=== PATIENT | female | born 1950 | race Caucasian/White ===

== ENCOUNTER → 2018-01-06 | Outpatient (CLI) | payer MEDICAID, MEDICARE ==
[~2018-01-06] MED LIST: ALPH50CA2 PO; ALPR-475 PO; AMIT10TA PO; AMLO10TA2 PO; BUTA1CAP59 PO; DEPRESSION MED; DULO30CA2 PO; DULO60CA7 PO; FENT1PAT77 TD; FENT1PAT9; GABA600T PO; GABA800T PO; GINK120T3 PO; GLYB-135 PO; HYDR-879 PO; INSU100I18 SC; INSU100V8 SQ; LEVO75TA5 PO; LORA1TAB PO; METF10002 PO; MORP-52 PO; MULT-658 PO; OMEP-110 PO; OXYC-307 PO; SUMA50TA3 PO; VITA0.4T6 PO; ZOLP10TA5 PO; [UNRECOGNIZED DRUG - CODE] PO; lisinopril PO
[2018-01-06 14:34] LABS: ALANINE AMINOTRANSFERASE 51 U/L (12-78); ALBUMIN 3.4 g/dL (3.4-5.0); ANION GAP 7 mmol/L (5-15); CALCIUM 8.6 mg/dL (8.5-10.1); CHLORIDE 103 mmol/L (98-107)
[2018-01-06 14:36] LABS: ALKALINE PHOSPHATASE 126 U/L (45-117); BILIRUBIN,TOTAL 0.7 mg/dL (0.2-1.0); CREATININE 0.72 mg/dL (0.55-1.02); TOTAL PROTEIN 7.8 g/dL (6.4-8.2)
== END | disposition home or self-care (01) ==
LOC: STAR 13:04
PROVIDERS: ATTEND Obstetrics & Gynecology Female Pelvic Medicine and Reconstructive Surgery
DX: Z01.818 Encounter for other preprocedural examination (principal); R94.31 Abnormal electrocardiogram [ECG] [EKG]; N39.3 Stress incontinence (female) (male); R10.2 Pelvic and perineal pain; N81.10 Cystocele, unspecified; N81.6 Rectocele
CPT/HCPCS: 36415; 80053; 93005

== ENCOUNTER 2018-01-11 06:28 | Day surgery (SDC) | payer MEDICAID, MEDICARE ==
[~2018-01-11] VITALS: Ht 154.9 cm; Wt 67.4 kg
[~2018-01-11 06:28] MED LIST changes: +BUPIVACAINE/PF-EPI 0.25% 1:200K ONE; +NEOMY/POLYMYXIN B GU IRR. 1 ML IRRIG ONE
[2018-01-11] MEDS ORDERED: LACTATED RINGERS 1,000 ML IV SCH (07:07)
[2018-01-11 07:11] VITALS: BP 148/75
[2018-01-11] MEDS ORDERED: MIDAZOLAM 1 MG/ML, 2ML ONE (08:23)
[2018-01-11] MEDS ORDERED: FENTANYL PF 100 MCG/2ML ONE (08:23)
[2018-01-11] MEDS ORDERED: SUCCINYLCHOLINE 20 MG/ML, 10ML ONE (08:24)
[2018-01-11] MEDS ORDERED: PROPOFOL 10 MG/ML, 20ML ONE (08:24)
[2018-01-11] MEDS ORDERED: LIDOCAINE GEL 2%, 5ML ONE (08:24)
[2018-01-11] MEDS ORDERED: METOCLOPRAMIDE 5 MG/ML, 2ML ONE (08:25)
[2018-01-11] MEDS ORDERED: ONDANSETRON 2MG/ML, 2ML ONE (08:25)
[2018-01-11] MEDS ORDERED: DEXAMETHASONE 4 MG/ML, 1ML ONE (08:25)
[2018-01-11] MEDS ORDERED: KETOROLAC 30 MG/1 ML ONE (09:24)
[2018-01-11] MEDS ORDERED: OXYcodone 5 MG/5 ML ORAL.SOL UDC ONE (09:25)
[2018-01-11] MEDS ORDERED: MORPHINE SULFATE 4 MG/ML, 1ML ONE (09:25)
[2018-01-11] MEDS ORDERED: ONDANSETRON 2MG/ML, 2ML IVPush PRN (09:30)
[2018-01-11] MEDS ORDERED: OXYcodone 5 MG/5 ML ORAL.SOL UDC PO PRN (09:30)
[2018-01-11] MEDS ORDERED: HYDROmorphone 1 MG/ML, 1ML IV PRN (09:30)
[2018-01-11] MEDS ORDERED: MIDAZOLAM 1 MG/ML, 2ML IV PRN (09:30)
[2018-01-11] MEDS ORDERED: KETOROLAC 30 MG/1 ML IV PRN (09:30)
[2018-01-11] MEDS ORDERED: FENTANYL PF 100 MCG/2ML IV PRN (09:30)
[2018-01-11] MEDS ORDERED: MORPHINE SULFATE 4 MG/ML, 1ML IVPush PRN (09:30)
[2018-01-11] MEDS ORDERED: LABETALOL 5MG/ML, 20ML IV PRN (09:30)
[2018-01-11] MEDS ORDERED: MEPERIDINE/PF 25MG/0.5ML IVPush PRN (09:30)
[2018-01-11] MEDS ORDERED: OXYcodone/APAP 5/325MG TABLET PO PRN (13:00)
== END 2018-01-11 14:20 | disposition home or self-care (01) ==
LOC: OUT 06:28
PROVIDERS: ATTEND Obstetrics & Gynecology Female Pelvic Medicine and Reconstructive Surgery
DX: N81.89 Other female genital prolapse (principal); N39.46 Mixed incontinence; E11.9 Type 2 diabetes mellitus without complications; J45.909 Unspecified asthma, uncomplicated; E03.9 Hypothyroidism, unspecified; K21.9 Gastro-esophageal reflux disease without esophagitis; G43.909 Migraine, unspecified, not intractable, without status migrainosus; Z87.39 Personal history of other diseases of the musculoskeletal system and connective tissue; Z90.49 Acquired absence of other specified parts of digestive tract; Z98.890 Other specified postprocedural states; Z90.710 Acquired absence of both cervix and uterus; Z88.0 Allergy status to penicillin; Z79.899 Other long term (current) drug therapy
CPT/HCPCS: 57265; 57282; 57288; 82962; C1771; J0330; J1100; J1885; J2250; J2405; J2704; J2765; J3010; J7120

== ENCOUNTER 2018-07-31 22:01 | Emergency (ER) | payer MEDICARE ==
[~2018-07-31] VITALS: Ht 154.9 cm; Wt 68.6 kg
[~2018-07-31 22:01] MED LIST changes: -AMLO10TA2 PO; +AMLO10TA8 PO; -BUPIVACAINE/PF-EPI 0.25% 1:200K ONE; +HYDR-3622 PO; -HYDR-879 PO; -NEOMY/POLYMYXIN B GU IRR. 1 ML IRRIG ONE
--- NOTE | 2018-07-31 22:48 | NUR ---
Pt ambulated to restroom with for UA with steady gait
[2018-07-31 22:50] LABS: BASOPHILS # (AUTO) 0.03 x10^3/uL (0-0.1); BASOPHILS % (AUTO) 1 % (0-1); EOSINOPHILS # (AUTO) 0.12 x10^3/uL (0-0.4); EOSINOPHILS % (AUTO) 2 % (1-7); LYMPHOCYTES # (AUTO) 1.67 x10^3/uL (1-3.4); LYMPHOCYTES % (AUTO) 29 % (22-44); MD NO; MEAN CORPUSCULAR HGB CONC 33.5 g/dL (32.4-35.8); MEAN CORPUSCULAR VOLUME 89.7 fL (80-100); MONOCYTES # (AUTO) 0.49 x10^3/uL (0.2-0.8); MONOCYTES % (AUTO) 9 % (2-9); NEUTROPHILS # (AUTO) 3.45 x10^3/uL (1.8-6.8); NEUTROPHILS % (AUTO) 60 % (42-75); PLATELET COUNT 180 x10^3/uL (130-400); RED BLOOD COUNT 4.15 x10^6/uL (3.82-5.3); RED CELL DISTRIBUTION WIDTH 13.9 % (9.6-15.2)
--- NOTE | 2018-07-31 22:59 | NUR ---
urine collected and sent to lab.
[2018-07-31] MEDS ORDERED: ONDANSETRON 2MG/ML, 2ML IVPush ONE (23:00)
[2018-07-31] MEDS ORDERED: ONDANSETRON 2MG/ML, 2ML ONE (23:00)
[2018-07-31] MEDS ORDERED: MORPHINE SULFATE 4 MG/ML, 1ML ONE (23:00)
[2018-07-31] MEDS ORDERED: MORPHINE SULFATE 4 MG/ML, 1ML IVPush PRN (23:00)
[2018-07-31 23:02] LABS: ALANINE AMINOTRANSFERASE 40 U/L (12-78); ALBUMIN 3.2 g/dL (3.4-5.0); ANION GAP 8 mmol/L (5-15); CALCIUM 8.5 mg/dL (8.5-10.1); CHLORIDE 109 mmol/L (98-107); CREATININE 0.59 mg/dL (0.55-1.02)
--- NOTE | 2018-07-31 23:05 | NUR ---
PT PRESENTS TO ED WITH C/O PERIUMBILICAL PAIN WITH N/V X 1 WEEK. PT A&O, RESPS EVEN AND UNLABORED. AT BEDSIDE. BP AND SPO2 MONITORS IN PLACE. CALL LIGHT IN REACH. PT MEDICATED PER EMAR, TOLERATED WELL. AWAITING UA, LAB AND CT .
[2018-07-31 23:07] LABS: ALKALINE PHOSPHATASE 124 U/L (45-117); BILIRUBIN,TOTAL 0.7 mg/dL (0.2-1.0); TOTAL PROTEIN 7.2 g/dL (6.4-8.2); TROPONIN I < 0.015 ng/mL (0.000-0.045)
[2018-07-31 23:09] LABS: MICROSCOPIC NOT IND
[2018-07-31 23:14] LABS: CULTURE INDICATED? NO
--- NOTE | 2018-07-31 23:23 | NUR ---
pt to CT
--- NOTE | 2018-07-31 23:33 | NUR ---
pt back from CT
--- NOTE | 2018-07-31 23:44 | NUR ---
per failure analysis technician, pt c/o of pain at PIV site with flush prior to contrast admin. Pt brought back to room 14. PIV site is reddened with localized swelling, this was not noted with morphine admin. PIV was dc'd with tip intact. New PIV placed to left forarm, flushes with blood return. CT called to notify that pt is ready for scan. Addendum: 08/01/18 at 0005 by JIM per failure analysis technician, pt c/o of pain at PIV site with flush prior to contrast admin. Pt brought back to room 14. PIV site is reddened with localized swelling, this was not noted with morphine admin. PIV was dc'd with tip intact. Pt denies any sob, denies any itchiness, denies any other symptoms. pt states she has never had any adverse rxn to morphine/zofran in past. New PIV placed to left forarm, flushes with blood return. CT called to notify that pt is ready for scan.
--- NOTE | 2018-08-01 00:05 | NUR ---
REPORT TO JADE GRIFFITH, PT TO CT AT THIS TIME.
[2018-08-01] MEDS ORDERED: OMNIPAQUE 350 MG/ML, 100ML BOTTLE ONE (00:18)
[2018-08-01 01:23] VITALS: BP 162/67
--- NOTE | 2018-08-01 01:49 | NUR ---
BREAK RN: DR. DAVIDSON AT BEDSIDE UPDATING PT ON POC
== END 2018-08-01 02:20 | disposition home or self-care (01) ==
LOC: ED 23:00
DX: R10.84 Generalized abdominal pain (principal); I10 Essential (primary) hypertension; E11.9 Type 2 diabetes mellitus without complications; J44.9 Chronic obstructive pulmonary disease, unspecified; G43.909 Migraine, unspecified, not intractable, without status migrainosus; F32.9 Major depressive disorder, single episode, unspecified; Z90.49 Acquired absence of other specified parts of digestive tract; Z88.5 Allergy status to narcotic agent; Z88.0 Allergy status to penicillin; Z88.8 Allergy status to other drugs, medicaments and biological substances
CPT/HCPCS: 36415; 74177; 80053; 81003; 83690; 84484; 85025; 96374; 96375; 99284; J2405; Q9967

== ENCOUNTER 2018-08-03 00:39 | Emergency (ER) | payer MEDICARE ==
[~2018-08-03] VITALS: Ht 160 cm; Wt 68.3 kg
--- NOTE | 2018-08-03 01:05 | NUR ---
FIRST CONTACT WITH PT. PT C/O ALL QUADRANTS ABD PAIN/N/V FOR A WEEK. PT STATES HERE 2 DAYS AGO FOR THE SAME REASONS, BUT IT'S GETTING WORSE. PT DENIES SOB/D/CP AT THIS TIME. BP/SPO2 MONITORS IN PLACE. CALL LIGHT WITHIN REACH. EDMD AT BEDSIDE TO ASSESS.
[2018-08-03 01:20] LABS: MEAN CORPUSCULAR HEMOGLOBIN 29.9 pg (27.0-34.8); MEAN CORPUSCULAR HGB CONC 32.9 g/dL (32.4-35.8); MEAN CORPUSCULAR VOLUME 90.8 fL (80-100); MEAN PLATELET VOLUME 9.1 fL (7.4-10.4); PLATELET COUNT 220 x10^3/uL (130-400); RED BLOOD COUNT 4.66 x10^6/uL (3.82-5.3)
[2018-08-03] MEDS ORDERED: ONDANSETRON 2MG/ML, 2ML ONE ×2 (01:20→02:53)
[2018-08-03] MEDS ORDERED: MORPHINE SULFATE 4 MG/ML, 1ML ONE (01:21)
[2018-08-03] MEDS ORDERED: MAALOX/HYOSCYAMINE/LIDOCAINE 45 ML BTL ONE (01:21)
[2018-08-03] MEDS ORDERED: ONDANSETRON 2MG/ML, 2ML IVPush ONE ×2 (01:30→03:00)
[2018-08-03] MEDS ORDERED: MORPHINE SULFATE 4 MG/ML, 1ML IVPush PRN (01:30)
[2018-08-03] MEDS ORDERED: MAALOX/HYOSCYAMINE/LIDOCAINE 45 ML BTL PO ONE (01:30)
[2018-08-03] MEDS ORDERED: SODIUM CHLORIDE FLUSH 10ML SYR IVF ONE (01:30)
[2018-08-03 01:31] LABS: BASOPHILS # (AUTO) 0.03 x10^3/uL (0-0.1); BASOPHILS % (AUTO) 0 % (0-1); EOSINOPHILS # (AUTO) 0.21 x10^3/uL (0-0.4); EOSINOPHILS % (AUTO) 1 % (1-7); LYMPHOCYTES # (AUTO) 1.18 x10^3/uL (1-3.4); LYMPHOCYTES % (AUTO) 8 % (22-44); MD SCAN; MONOCYTES % (AUTO) 5 % (2-9); NEUTROPHILS % (AUTO) 86 % (42-75)
[2018-08-03 01:32] LABS: ALANINE AMINOTRANSFERASE 44 U/L (12-78); ALBUMIN 3.6 g/dL (3.4-5.0); ANION GAP 7 mmol/L (5-15); CALCIUM 8.9 mg/dL (8.5-10.1); CHLORIDE 106 mmol/L (98-107); CREATININE 0.71 mg/dL (0.55-1.02)
[2018-08-03 01:34] LABS: ALKALINE PHOSPHATASE 116 U/L (45-117); BILIRUBIN,TOTAL 0.8 mg/dL (0.2-1.0); TOTAL PROTEIN 7.6 g/dL (6.4-8.2)
--- NOTE | 2018-08-03 01:34 | NUR ---
PT MEDICATED PER EMAR. PT TOLERATED WELL.
--- NOTE | 2018-08-03 01:50 | NUR ---
PT AMB TO BR AND BACK TO ROOM WITH STEADY GAIT.
[2018-08-03 02:02] LABS: MICROSCOPIC AUTO
[2018-08-03] MEDS ORDERED: CEFDINIR 300 MG CAPSULE ONE (02:53)
[2018-08-03] MEDS ORDERED: OXYcodone/APAP 10/325MG TABLET ONE (02:53)
[2018-08-03] MEDS ORDERED: OXYcodone/APAP 10/325MG TABLET PO ONE (03:00)
[2018-08-03] MEDS ORDERED: CEFDINIR 300 MG CAPSULE PO ONE (03:00)
--- NOTE | 2018-08-03 03:01 | NUR ---
pt medicated per emar. pt tolerated well. pt's aox4. resps even and unlabored.
[2018-08-03 03:09] VITALS: BP 146/57
--- NOTE | 2018-08-03 03:39 | NUR ---
PT GIVEN DC INSTRUCTIONS AND SCRIPTS. PT EDUCATED REGARDING DC MEDICATIONS. PT AMB TO DC WITH STEADY GAIT. PT'S AOX4. RESPS EVEN AND UNLABORED. NO ACUTE DISTRESS AT DC.
== END 2018-08-03 03:11 | disposition home or self-care (01) ==
LOC: ED 01:06
DX: R10.13 Epigastric pain (principal); R11.2 Nausea with vomiting, unspecified; I10 Essential (primary) hypertension; E11.9 Type 2 diabetes mellitus without complications; J44.9 Chronic obstructive pulmonary disease, unspecified; F41.1 Generalized anxiety disorder; Z90.89 Acquired absence of other organs; Z90.49 Acquired absence of other specified parts of digestive tract; Z90.710 Acquired absence of both cervix and uterus
CPT/HCPCS: 36415; 74022; 80053; 81001; 83690; 85025; 96374; 96375; 96376; 99284; J2405

== ENCOUNTER 2018-12-08 08:02 | Outpatient (CLI) | payer MEDICARE ==
[~2018-12-08 08:02] MED LIST changes: -ALPR-475 PO; +ALPR0.5T7 PO
== END 2018-12-08 23:59 | disposition home or self-care (01) ==
LOC: PETCFH 08:02
PROVIDERS: ATTEND Internal Medicine Gastroenterology
DX: Z02.9 Encounter for administrative examinations, unspecified (principal)

== ENCOUNTER 2019-10-16 20:43 | Emergency (ER) | payer MEDICARE ==
[~2019-10-16] VITALS: Ht 154.9 cm; Wt 63.5 kg
[~2019-10-16 20:43] MED LIST changes: -GLYB-135 PO; +GLYB1TAB16 PO
--- NOTE | 2019-10-16 21:09 | NUR ---
Task RN: Patient presents to ER c/o anxiety since last night. Patient states she went to [facility] yesterday due to left leg pain and right arm pain. Patient states she has a hx of neuropathy and does not take pain meds. She received Toradol yesterday for her pain at [facility] and has been axious since then. Patient has a hx of anxiety but does not take meds. Patient c/o bilat leg pain today. Patient is anxious. Respirations even, unlabored, and controlled.
[2019-10-16] MEDS ORDERED: LORazepam 1MG TABLET ONE (21:47)
--- NOTE | 2019-10-16 21:53 | NUR ---
PT MEDICATED PER MAR
[2019-10-16] MEDS ORDERED: LORazepam 1MG TABLET PO ONE (22:00)
--- NOTE | 2019-10-16 22:55 | NUR ---
PT RESTING ON GURNEY WITH EYES CLOSED, SPOUSE AT BEDSIDE, CALL LIGHT WITHIN REACH. CHART UP FOR RECHECK
[2019-10-16 22:57] VITALS: BP 124/80
== END 2019-10-16 23:14 | disposition home or self-care (01) ==
LOC: ED 23:12
DX: F41.1 Generalized anxiety disorder (principal); E11.40 Type 2 diabetes mellitus with diabetic neuropathy, unspecified; M79.661 Pain in right lower leg; J44.9 Chronic obstructive pulmonary disease, unspecified; E11.9 Type 2 diabetes mellitus without complications; G89.29 Other chronic pain; I10 Essential (primary) hypertension; G43.909 Migraine, unspecified, not intractable, without status migrainosus; Z90.89 Acquired absence of other organs; Z90.49 Acquired absence of other specified parts of digestive tract; Z90.710 Acquired absence of both cervix and uterus
CPT/HCPCS: 99283

== ENCOUNTER 2020-01-18 06:21 | Emergency (ER) | payer MEDICARE ==
[~2020-01-18] VITALS: Ht 154.9 cm; Wt 64.0 kg
--- NOTE | 2020-01-18 06:44 | NUR ---
PT TO ROOM BY WHEELCHAIR, ASSUME CARE AT THIS TIME
--- NOTE | 2020-01-18 07:04 | NUR ---
ABD PAIN X 1 WEEK DENIES VOMITING DIARRHEA. PT IN BED IN GOWN WITH CONT SPO2, BP Q 30 MIN, SIDE RIALS UP X2, CALL LIGHT IN REACH. 20G IV STARTED IN RIGHT ARM. WARM BLANKET GIVEN.
[2020-01-18] MEDS ORDERED: ONDANSETRON 2MG/ML, 2ML ONE (07:13)
[2020-01-18] MEDS ORDERED: MORPHINE SULFATE 4 MG/ML, 1ML ONE ×2 (07:13→08:47)
[2020-01-18] MEDS: MORPHINE SULFATE 4 MG/ML, 1ML IVPush PRN ×2 (07:19→08:50)
--- NOTE | 2020-01-18 07:19 | NUR ---
WENT OVER PLAN OF CARE FROM ORDER LIST, AGREES TO PLAN OF CARE. URINE CUP GIVEN.
[2020-01-18 07:29] LABS: BASOPHILS # (AUTO) 0.04 x10^3/uL (0-0.1); BASOPHILS % (AUTO) 1 % (0-1); EOSINOPHILS # (AUTO) 0.13 x10^3/uL (0-0.4); EOSINOPHILS % (AUTO) 2 % (1-7); LYMPHOCYTES # (AUTO) 1.18 x10^3/uL (1-3.4); LYMPHOCYTES % (AUTO) 17 % (22-44); MD NO; MEAN CORPUSCULAR HEMOGLOBIN 29.2 pg (27.0-34.8); MEAN CORPUSCULAR HGB CONC 32.2 g/dL (32.4-35.8); MEAN CORPUSCULAR VOLUME 90.7 fL (80-100); MEAN PLATELET VOLUME 8.5 fL (7.4-10.4); MONOCYTES # (AUTO) 0.46 x10^3/uL (0.2-0.8); MONOCYTES % (AUTO) 7 % (2-9); NEUTROPHILS # (AUTO) 4.99 x10^3/uL (1.8-6.8); NEUTROPHILS % (AUTO) 73 % (42-75); PLATELET COUNT 183 x10^3/uL (130-400); RED BLOOD COUNT 3.97 x10^6/uL (3.82-5.3); RED CELL DISTRIBUTION WIDTH 14.6 % (9.6-15.2)
[2020-01-18] MEDS ORDERED: ONDANSETRON 2MG/ML, 2ML IVPush ONE (07:30)
[2020-01-18 07:38] LABS: ALANINE AMINOTRANSFERASE 44 U/L (12-78); ALBUMIN 3.1 g/dL (3.4-5.0); ANION GAP 5 mmol/L (5-15); CHLORIDE 96 mmol/L (98-107); CREATININE 0.58 mg/dL (0.55-1.02)
[2020-01-18 07:40] LABS: ALKALINE PHOSPHATASE 150 U/L (45-117); BILIRUBIN,TOTAL 0.9 mg/dL (0.2-1.0); TOTAL PROTEIN 7.1 g/dL (6.4-8.2)
--- NOTE | 2020-01-18 07:42 | NUR ---
URINE SENT TO LAB
[2020-01-18] MEDS ORDERED: OMNIPAQUE 350 MG/ML, 100ML BOTTLE ONE (08:10)
--- NOTE | 2020-01-18 08:17 | NUR ---
PT PAIN 3/10, RESTING RR 16MIN, EVEN AND UNLABORED
--- NOTE | 2020-01-18 08:22 | NUR ---
PT AMBULATED TO THE REST ROOM WITH A STEADY GAIT
[2020-01-18 08:23] LABS: MICROSCOPIC AUTO
[2020-01-18] MEDS ORDERED: KETOROLAC 30 MG/1 ML ONE (09:59)
[2020-01-18] MEDS ORDERED: LORazepam 2 MG/ML, 1ML IVPush ONE (10:00)
[2020-01-18] MEDS ORDERED: LORazepam 2 MG/ML, 1ML ONE (10:00)
[2020-01-18] MEDS ORDERED: KETOROLAC 30 MG/1 ML IVPush ONE (10:00)
[2020-01-18 10:28] VITALS: BP 132/74
== END 2020-01-18 10:29 | disposition home or self-care (01) ==
LOC: ED 07:08
DX: R10.32 Left lower quadrant pain (principal); F41.1 Generalized anxiety disorder; R10.31 Right lower quadrant pain; E11.9 Type 2 diabetes mellitus without complications; Z90.49 Acquired absence of other specified parts of digestive tract; Z90.710 Acquired absence of both cervix and uterus
CPT/HCPCS: 36415; 74177; 80053; 81001; 85025; 96374; 96375; 96376; 99285; J2060; J2270; J2405; Q9967

== ENCOUNTER 2020-01-26 22:22 | Emergency (ER) | payer MEDICARE ==
[~2020-01-26] VITALS: Ht 147.3 cm; Wt 65.5 kg
--- NOTE | 2020-01-27 00:09 | NUR ---
LAB CALLS AND NOTES THAT THEY NEED TO REDRAW.
[2020-01-27 00:17] LABS: ALANINE AMINOTRANSFERASE 44 U/L (12-78); ANION GAP 5 mmol/L (5-15); CALCIUM 9.1 mg/dL (8.5-10.1); CHLORIDE 108 mmol/L (98-107); CREATININE 0.62 mg/dL (0.55-1.02)
[2020-01-27 00:20] LABS: ALKALINE PHOSPHATASE 143 U/L (45-117); BILIRUBIN,TOTAL 0.4 mg/dL (0.2-1.0); TOTAL PROTEIN 7.3 g/dL (6.4-8.2)
[2020-01-27 01:02] LABS: BASOPHILS # (AUTO) 0.04 x10^3/uL (0-0.1); BASOPHILS % (AUTO) 1 % (0-1); EOSINOPHILS # (AUTO) 0.21 x10^3/uL (0-0.4); EOSINOPHILS % (AUTO) 3 % (1-7); LYMPHOCYTES # (AUTO) 2.64 x10^3/uL (1-3.4); LYMPHOCYTES % (AUTO) 36 % (22-44); MD NO; MEAN CORPUSCULAR HEMOGLOBIN 29.1 pg (27.0-34.8); MEAN CORPUSCULAR HGB CONC 31.8 g/dL (32.4-35.8); MEAN CORPUSCULAR VOLUME 91.7 fL (80-100); MEAN PLATELET VOLUME 8.2 fL (7.4-10.4); MONOCYTES # (AUTO) 0.89 x10^3/uL (0.2-0.8); MONOCYTES % (AUTO) 12 % (2-9); NEUTROPHILS # (AUTO) 3.53 x10^3/uL (1.8-6.8); NEUTROPHILS % (AUTO) 48 % (42-75); PLATELET COUNT 238 x10^3/uL (130-400); RED CELL DISTRIBUTION WIDTH 14.5 % (9.6-15.2)
--- NOTE | 2020-01-27 01:16 | NUR ---
BREAK RN: PT C/O RLQ ABD PAIN. PT REPORTS SHE HAS NOT HAD A BOWEL MOVEMENT IN ONE WEEK. VS STABLE. NO ACUTE DISTRESS NOTED. WILL CONTINUE TO MONITOR WHILE PRIMARY RN IS ON BREAK.
[2020-01-27 02:00] VITALS: BP 148/68
[2020-01-27] MEDS ORDERED: METHYLNALTREXONE 12 MG/0.6 ML SYR SQ ONE ×2 (02:00→02:05)
[2020-01-27] MEDS ORDERED: MAGNESIUM CITRATE 300ML ORAL SOL PO ONE (02:00)
[2020-01-27] MEDS ORDERED: MAGNESIUM CITRATE 300ML ORAL SOL ONE (02:04)
--- NOTE | 2020-01-27 02:26 | NUR ---
Pt ambulated out of restroom stating "something came out, i'd like to go home now." Pt informed just pending DC paperwork and she'd be able to leave momentarilly. Upon getting paperwork and bringing it to her room, pt is no longer in room. Pt left without DC paperwork
== END 2020-01-27 02:31 | disposition home or self-care (01) ==
LOC: ED 01-27
DX: K59.00 Constipation, unspecified (principal); R10.84 Generalized abdominal pain; R11.0 Nausea; I10 Essential (primary) hypertension; E11.9 Type 2 diabetes mellitus without complications; G43.909 Migraine, unspecified, not intractable, without status migrainosus; J44.9 Chronic obstructive pulmonary disease, unspecified; Z90.89 Acquired absence of other organs; Z90.49 Acquired absence of other specified parts of digestive tract; Z90.710 Acquired absence of both cervix and uterus
CPT/HCPCS: 36415; 74021; 80053; 83690; 85025; 96372; 99284

== ENCOUNTER 2020-02-23 04:36 | Emergency (ER) | payer MEDICARE ==
[~2020-02-23] VITALS: Ht 154.9 cm; Wt 65.0 kg
[2020-02-23 04:42] VITALS: BP 162/77
[2020-02-23] MEDS ORDERED: GABAPENTIN 300 MG CAPSULE ONE (05:26)
[2020-02-23] MEDS ORDERED: OXYcodone/APAP 10/325MG TABLET ONE (05:26)
[2020-02-23] MEDS ORDERED: OXYcodone/APAP 10/325MG TABLET PO ONE (05:30)
[2020-02-23] MEDS ORDERED: GABAPENTIN 300 MG CAPSULE PO ONE (05:30)
== END 2020-02-23 06:46 | disposition home or self-care (01) ==
LOC: ED 05:48
DX: E11.40 Type 2 diabetes mellitus with diabetic neuropathy, unspecified (principal); M79.604 Pain in right leg; M79.605 Pain in left leg; Z90.89 Acquired absence of other organs; Z90.49 Acquired absence of other specified parts of digestive tract; Z90.710 Acquired absence of both cervix and uterus
CPT/HCPCS: 99283

== ENCOUNTER 2020-07-29 06:34 | Inpatient (IN) | payer MEDICARE ==
[2020-07-29] VITALS (8 sets, daily range): BP systolic 151–208; BP diastolic 74–84
[~2020-07-29] VITALS: Ht 154.9 cm; Wt 67.2 kg
[~2020-07-29 06:34] MED LIST changes: +AMLO-211 PO; -AMLO10TA8 PO; -OXYC-307 PO; +OXYC-380 PO
[2020-07-29 07:37] LABS: BASOPHILS % (AUTO) 0 % (0-1); EOSINOPHILS % (AUTO) 1 % (1-7); LYMPHOCYTES % (AUTO) 5 % (22-44); MEAN CORPUSCULAR HEMOGLOBIN 27.9 pg (27.0-34.8); MEAN CORPUSCULAR HGB CONC 33.1 g/dL (32.4-35.8); MEAN PLATELET VOLUME 7.4 fL (7.4-10.4); MONOCYTES % (AUTO) 7 % (2-9); NEUTROPHILS % (AUTO) 87 % (42-75); PLATELET COUNT 327 x10^3/uL (130-400); RED BLOOD COUNT 3.59 x10^6/uL (3.82-5.3); RED CELL DISTRIBUTION WIDTH 14.2 % (9.6-15.2)
[2020-07-29 07:46] LABS: ALANINE AMINOTRANSFERASE 24 U/L (12-78); ALBUMIN 2.5 g/dL (3.4-5.0); ANION GAP 10 mmol/L (5-15); CALCIUM 8.4 mg/dL (8.5-10.1); CHLORIDE 95 mmol/L (98-107); CREATININE 0.73 mg/dL (0.55-1.02)
[2020-07-29] MEDS ORDERED: DEXAMETHASONE 4 MG/ML, 1ML ONE ×2 (07:49→07:51)
[2020-07-29 07:50] LABS: ALKALINE PHOSPHATASE 123 U/L (45-117); BILIRUBIN,TOTAL 0.9 mg/dL (0.2-1.0); TOTAL PROTEIN 6.6 g/dL (6.4-8.2); TROPONIN I < 0.015 ng/mL (0.000-0.045)
[2020-07-29] MEDS ORDERED: CEFTRIAXONE PMX 2GM/50ML 50 ML ONE (07:50)
[2020-07-29] MEDS ORDERED: DOXYCYCLINE 100MG TABLET ONE (07:50)
[2020-07-29] MEDS ORDERED: CEFTRIAXONE PMX 1GM/50ML 50 ML ONE (07:50)
[2020-07-29 07:51] LABS: MD SCAN
[2020-07-29] MEDS ORDERED: DOXYCYCLINE 100MG TABLET PO ONE (08:00)
[2020-07-29] MEDS ORDERED: DEXAMETHASONE 4 MG/ML, 1ML IV ONE (08:00)
[2020-07-29] MEDS ORDERED: CEFTRIAXONE PMX 1GM/50ML 50 ML IVPB ONE (08:00)
[2020-07-29] MEDS ORDERED: ENOXAPARIN 40 MG/0.4 ML SQ SCH (09:00)
[2020-07-29] MEDS ORDERED: FAMOTIDINE 20 MG TABLET PO SCH (09:00)
[2020-07-29] MEDS: DULOXETINE 30 MG CAPSULE.DR PO SCH (09:00)
[2020-07-29] MEDS: CEFTRIAXONE PMX 1GM/50ML 50 ML IV SCH (09:00)
[2020-07-29] MEDS ORDERED: THIAMINE 100MG TABLET PO ONE (09:00)
[2020-07-29] MEDS ORDERED: DEXAMETHASONE 4 MG/ML, 1ML IVPush SCH (09:00)
[2020-07-29] MEDS ORDERED: ENALAPRILAT 1.25 MG/ML, 2ML IVPush PRN (09:00)
[2020-07-29] MEDS ORDERED: GUAIFENESIN/DM 200-20MG, 10ML UDC PO PRN (09:00)
[2020-07-29] MEDS: ENOXAPARIN 60 MG/0.6 ML SQ SCH ×2 (09:30→21:11)
[2020-07-29] MEDS ORDERED: SODIUM CHLORIDE 0.9% 1,000ML IVBOLUS ONE (09:30)
[2020-07-29] MEDS: CHOLECALCIFEROL 1,000 UNIT TABLET PO SCH (09:50)
[2020-07-29] MEDS: ZINC SULFATE 220 MG CAPSULE PO SCH (09:50)
[2020-07-29] MEDS: MULTIVITAMIN 1 TABLET PO SCH (09:51)
[2020-07-29] MEDS: LEVOTHYROXINE 75 MCG TABLET PO SCH (10:09)
[2020-07-29] MEDS: ONDANSETRON ODT 4 MG PO PRN ×2 (10:09→18:30)
[2020-07-29] MEDS ORDERED: ALBUTEROL HFA 90 MCG/SPRAY INH SCH (11:00)
[2020-07-29] MEDS ORDERED: ENALAPRILAT 1.25 MG/ML, 1ML ONE (11:10)
[2020-07-29] MEDS: INSULIN LISPRO 100 UNITS/ML, PEN SQ-INSULIN SCH ×3 (12:19→21:09)
[2020-07-29] MEDS: HYDROcodone/APAP 5/325 TABLET PO PRN ×2 (12:40→18:30)
[2020-07-29] MEDS: ALBUTEROL HFA 90 MCG/SPRAY INH SCH ×3 (12:42→19:50)
[2020-07-29] MEDS ORDERED: OXYC-380 PO (13:48)
[2020-07-29] MEDS ORDERED: HYDR-826 PO (13:51)
[2020-07-29] MEDS ORDERED: TRAZ-175 PO (13:52)
[2020-07-29] MEDS ORDERED: ONDA4TAB7 PO (13:53)
[2020-07-29] MEDS ORDERED: HYOS0.1268 PO (13:56)
[2020-07-29] MEDS ORDERED: BENZ-17 PO (13:56)
[2020-07-29] MEDS ORDERED: MELO15TA24 PO (13:56)
[2020-07-29] MEDS ORDERED: ALBU0.63 NEB (14:01)
[2020-07-29] MEDS ORDERED: SUMATRIPTAN 25 MG TABLET ONE (14:20)
[2020-07-29] MEDS: SUMATRIPTAN 50 MG TABLET PO PRN (14:26)
[2020-07-29] MEDS ORDERED: hydrALAzine 20 MG/ML, 1ML IV PRN (15:30)
[2020-07-29] MEDS ORDERED: LABETALOL 5MG/ML, 20ML IVPush PRN (15:30)
[2020-07-29] MEDS: GABAPENTIN 300 MG CAPSULE PO SCH ×2 (16:20→21:00)
[2020-07-29] MEDS: OXYcodone/APAP 10/325MG TABLET PO SCH ×2 (16:21→21:10)
[2020-07-29] MEDS ORDERED: metFORMIN 500 MG TABLET PO SCH (17:00)
[2020-07-29] MEDS: ASCORBIC ACID 500 MG TABLET PO SCH (18:10)
[2020-07-29] MEDS: DOXYCYCLINE 100MG TABLET PO SCH (21:00)
[2020-07-30 00:58] VITALS: BP 113/72
[2020-07-30] MEDS: ONDANSETRON 2MG/ML, 2ML IVPush PRN ×3 (02:44→21:06)
[2020-07-30] MEDS: HYDROcodone/APAP 5/325 TABLET PO PRN ×2 (02:54→19:16)
[2020-07-30 05:17] LABS: BASOPHILS % (AUTO) 0 % (0-1); EOSINOPHILS % (AUTO) 0 % (1-7); LYMPHOCYTES % (AUTO) 6 % (22-44); MEAN CORPUSCULAR HEMOGLOBIN 27.8 pg (27.0-34.8); MEAN CORPUSCULAR HGB CONC 33.7 g/dL (32.4-35.8); MEAN PLATELET VOLUME 7.4 fL (7.4-10.4); MONOCYTES % (AUTO) 8 % (2-9); NEUTROPHILS % (AUTO) 86 % (42-75); PLATELET COUNT 300 x10^3/uL (130-400); RED BLOOD COUNT 3.44 x10^6/uL (3.82-5.3)
[2020-07-30 05:25] LABS: CHLORIDE 96 mmol/L (98-107)
[2020-07-30 05:41] LABS: ALANINE AMINOTRANSFERASE 20 U/L (12-78); ALBUMIN 1.9 g/dL (3.4-5.0); ALKALINE PHOSPHATASE 119 U/L (45-117); ANION GAP 8 mmol/L (5-15); BILIRUBIN,TOTAL 0.5 mg/dL (0.2-1.0); CALCIUM 7.7 mg/dL (8.5-10.1); CREATININE 0.74 mg/dL (0.55-1.02); TOTAL PROTEIN 5.6 g/dL (6.4-8.2)
[2020-07-30 05:54] LABS: MD SCAN
[2020-07-30] MEDS: OXYcodone/APAP 10/325MG TABLET PO SCH ×2 (06:30→13:06)
[2020-07-30] MEDS: OMEPRAZOLE 20 MG CAPSULE.DR PO SCH (06:31)
[2020-07-30] MEDS: LEVOTHYROXINE 75 MCG TABLET PO SCH (06:31)
[2020-07-30 06:37] VITALS: BP 125/62
[2020-07-30] MEDS: ALBUTEROL HFA 90 MCG/SPRAY INH SCH ×4 (06:45→19:38)
[2020-07-30] MEDS: INSULIN LISPRO 100 UNITS/ML, PEN SQ-INSULIN SCH ×4 (07:00→21:08)
[2020-07-30] MEDS: DEXAMETHASONE 4 MG/ML, 1ML IVPush SCH (07:43)
[2020-07-30] MEDS: ENOXAPARIN 60 MG/0.6 ML SQ SCH ×2 (07:44→21:02)
[2020-07-30] MEDS: ZINC SULFATE 220 MG CAPSULE PO SCH ×2 (07:45→13:07)
[2020-07-30] MEDS: CHOLECALCIFEROL 1,000 UNIT TABLET PO SCH (07:45)
[2020-07-30] MEDS: LISINOPRIL 10 MG TABLET PO SCH (07:45)
[2020-07-30] MEDS: GABAPENTIN 300 MG CAPSULE PO SCH ×3 (07:45→21:00)
[2020-07-30] MEDS: DULOXETINE 30 MG CAPSULE.DR PO SCH (07:46)
[2020-07-30] MEDS: MULTIVITAMIN 1 TABLET PO SCH (07:46)
[2020-07-30] MEDS: ASCORBIC ACID 500 MG TABLET PO SCH ×2 (07:46→16:29)
[2020-07-30] MEDS: DOXYCYCLINE 100MG TABLET PO SCH ×2 (07:46→21:00)
[2020-07-30] MEDS: CEFTRIAXONE PMX 1GM/50ML 50 ML IV SCH (08:34)
[2020-07-30] MEDS ORDERED: MAALOX/HYOSCYAMINE/LIDOCAINE 45 ML BTL PO SCH (09:00)
[2020-07-30] MEDS ORDERED: FUROSEMIDE 40 MG/4 ML IV ONE (11:30)
[2020-07-30] MEDS: CHOLECALCIFEROL 5,000u TAB PO SCH (13:07)
[2020-07-30] MEDS: THIAMINE 100MG TABLET PO SCH (13:07)
[2020-07-30] MEDS: ACETAMINOPHEN 325 MG TABLET PO PRN (13:07)
[2020-07-30] MEDS: TRAZODONE 50MG TABLET PO PRN (21:00)
[2020-07-31] MEDS: OMEPRAZOLE 20 MG CAPSULE.DR PO SCH (04:23)
[2020-07-31] MEDS: LEVOTHYROXINE 75 MCG TABLET PO SCH (04:23)
[2020-07-31 04:28] LABS: BASOPHILS % (AUTO) 1 % (0-1); EOSINOPHILS % (AUTO) 0 % (1-7); LYMPHOCYTES % (AUTO) 8 % (22-44); MEAN CORPUSCULAR HEMOGLOBIN 27.8 pg (27.0-34.8); MEAN CORPUSCULAR HGB CONC 33.3 g/dL (32.4-35.8); MEAN PLATELET VOLUME 7.7 fL (7.4-10.4); MONOCYTES % (AUTO) 7 % (2-9); NEUTROPHILS % (AUTO) 85 % (42-75); PLATELET COUNT 312 x10^3/uL (130-400); RED BLOOD COUNT 3.51 x10^6/uL (3.82-5.3)
[2020-07-31 04:32] LABS: ANION GAP 8 mmol/L (5-15); CALCIUM 7.9 mg/dL (8.5-10.1); CHLORIDE 95 mmol/L (98-107); CREATININE 0.75 mg/dL (0.55-1.02)
[2020-07-31 04:35] LABS: MD NO
[2020-07-31] MEDS: ALBUTEROL HFA 90 MCG/SPRAY INH SCH ×2 (07:05→20:34)
[2020-07-31] MEDS: ZINC SULFATE 220 MG CAPSULE PO SCH (08:54)
[2020-07-31] MEDS: DEXAMETHASONE 4 MG/ML, 1ML IVPush SCH (08:54)
[2020-07-31] MEDS: ASCORBIC ACID 500 MG TABLET PO SCH (08:54)
[2020-07-31] MEDS: ENOXAPARIN 60 MG/0.6 ML SQ SCH (08:55)
[2020-07-31] MEDS: THIAMINE 100MG TABLET PO SCH (08:55)
[2020-07-31] MEDS: MULTIVITAMIN 1 TABLET PO SCH (08:55)
[2020-07-31] MEDS: DOXYCYCLINE 100MG TABLET PO SCH ×2 (08:55→20:33)
[2020-07-31] MEDS: CHOLECALCIFEROL 5,000u TAB PO SCH (08:55)
[2020-07-31] MEDS: DULOXETINE 30 MG CAPSULE.DR PO SCH (08:55)
[2020-07-31] MEDS: LISINOPRIL 10 MG TABLET PO SCH (08:55)
[2020-07-31] MEDS ORDERED: FUROSEMIDE 40 MG/4 ML IV ONE (09:00)
[2020-07-31] MEDS: CEFTRIAXONE PMX 1GM/50ML 50 ML IV SCH (09:18)
[2020-07-31] MEDS: HYDROcodone/APAP 5/325 TABLET PO PRN (09:18)
[2020-07-31] MEDS: GABAPENTIN 300 MG CAPSULE PO SCH ×3 (09:19→20:33)
[2020-07-31] MEDS: INSULIN LISPRO 100 UNITS/ML, PEN SQ-INSULIN SCH ×4 (09:19→20:35)
[2020-07-31] MEDS: ENOXAPARIN 30 MG/0.3 ML SQ SCH ×2 (11:00→20:33)
[2020-07-31] MEDS ORDERED: ONDANSETRON 4 MG TABLET ONE (15:21)
[2020-07-31] MEDS: ONDANSETRON 2MG/ML, 2ML IVPush PRN (15:29)
[2020-07-31] MEDS: ACETAMINOPHEN 325 MG TABLET PO PRN (15:30)
[2020-07-31] MEDS: TRAZODONE 50MG TABLET PO PRN (20:32)
[2020-08-01] MEDS: OMEPRAZOLE 20 MG CAPSULE.DR PO SCH (04:48)
[2020-08-01] MEDS: LEVOTHYROXINE 75 MCG TABLET PO SCH (04:48)
[2020-08-01] MEDS: ONDANSETRON 2MG/ML, 2ML IVPush PRN ×2 (07:41→17:11)
[2020-08-01] MEDS: INSULIN LISPRO 100 UNITS/ML, PEN SQ-INSULIN SCH ×4 (07:41→20:34)
[2020-08-01] MEDS: ALBUTEROL HFA 90 MCG/SPRAY INH SCH ×2 (09:00→21:53)
[2020-08-01] MEDS: LISINOPRIL 10 MG TABLET PO SCH (09:17)
[2020-08-01] MEDS: GABAPENTIN 300 MG CAPSULE PO SCH ×3 (09:17→20:32)
[2020-08-01] MEDS: MULTIVITAMIN 1 TABLET PO SCH (09:18)
[2020-08-01] MEDS: ENOXAPARIN 30 MG/0.3 ML SQ SCH ×2 (09:18→20:33)
[2020-08-01] MEDS: DOXYCYCLINE 100MG TABLET PO SCH ×2 (09:18→20:31)
[2020-08-01] MEDS: CEFTRIAXONE PMX 1GM/50ML 50 ML IV SCH (09:18)
[2020-08-01] MEDS: DULOXETINE 30 MG CAPSULE.DR PO SCH (09:18)
[2020-08-01] MEDS: ACETAMINOPHEN 325 MG TABLET PO PRN (18:25)
[2020-08-01 19:04] VITALS: BP 135/65
[2020-08-02 02:31] VITALS: BP 128/67
[2020-08-02] MEDS: LEVOTHYROXINE 75 MCG TABLET PO SCH (06:02)
[2020-08-02] MEDS: OMEPRAZOLE 20 MG CAPSULE.DR PO SCH (06:02)
[2020-08-02 06:45] VITALS: BP 123/56
[2020-08-02] MEDS: INSULIN LISPRO 100 UNITS/ML, PEN SQ-INSULIN SCH ×4 (07:31→20:23)
[2020-08-02] MEDS: ALBUTEROL HFA 90 MCG/SPRAY INH SCH ×2 (07:47→20:31)
[2020-08-02 08:38] LABS: BASOPHILS % (AUTO) 1 % (0-1); EOSINOPHILS % (AUTO) 2 % (1-7); LYMPHOCYTES % (AUTO) 22 % (22-44); MEAN CORPUSCULAR HEMOGLOBIN 27.7 pg (27.0-34.8); MEAN CORPUSCULAR HGB CONC 33.2 g/dL (32.4-35.8); MEAN PLATELET VOLUME 7.5 fL (7.4-10.4); MONOCYTES % (AUTO) 9 % (2-9); NEUTROPHILS % (AUTO) 67 % (42-75); PLATELET COUNT 322 x10^3/uL (130-400); RED BLOOD COUNT 3.72 x10^6/uL (3.82-5.3); RED CELL DISTRIBUTION WIDTH 14.2 % (9.6-15.2)
[2020-08-02 08:43] LABS: MD NO
[2020-08-02] MEDS: DULOXETINE 30 MG CAPSULE.DR PO SCH (08:49)
[2020-08-02] MEDS: GABAPENTIN 300 MG CAPSULE PO SCH ×3 (08:49→20:23)
[2020-08-02] MEDS: DOXYCYCLINE 100MG TABLET PO SCH ×2 (08:49→20:23)
[2020-08-02] MEDS: CEFTRIAXONE PMX 1GM/50ML 50 ML IV SCH (08:49)
[2020-08-02] MEDS: ENOXAPARIN 30 MG/0.3 ML SQ SCH ×2 (08:49→20:24)
[2020-08-02] MEDS: LISINOPRIL 10 MG TABLET PO SCH (08:49)
[2020-08-02] MEDS: MULTIVITAMIN 1 TABLET PO SCH (08:49)
[2020-08-02] MEDS: ONDANSETRON 2MG/ML, 2ML IVPush PRN (08:54)
[2020-08-02 13:28] VITALS: BP 131/70
[2020-08-02] MEDS: ACETAMINOPHEN 325 MG TABLET PO PRN (13:55)
[2020-08-02 17:36] LABS: ANION GAP 4 mmol/L (5-15); CALCIUM 7.9 mg/dL (8.5-10.1); CHLORIDE 99 mmol/L (98-107); CREATININE 0.87 mg/dL (0.55-1.02)
[2020-08-02 19:24] VITALS: BP 151/70
[2020-08-03 01:09] VITALS: BP 151/79
[2020-08-03] MEDS: LEVOTHYROXINE 75 MCG TABLET PO SCH (05:20)
[2020-08-03] MEDS: OMEPRAZOLE 20 MG CAPSULE.DR PO SCH (05:20)
[2020-08-03] MEDS: ONDANSETRON 2MG/ML, 2ML IVPush PRN (05:25)
[2020-08-03 06:04] LABS: BASOPHILS % (AUTO) 0 % (0-1); CHLORIDE 98 mmol/L (98-107); EOSINOPHILS % (AUTO) 8 % (1-7); LYMPHOCYTES % (AUTO) 22 % (22-44); MEAN CORPUSCULAR HEMOGLOBIN 27.8 pg (27.0-34.8); MEAN CORPUSCULAR HGB CONC 32.8 g/dL (32.4-35.8); MEAN PLATELET VOLUME 7.5 fL (7.4-10.4); MONOCYTES % (AUTO) 7 % (2-9); NEUTROPHILS % (AUTO) 63 % (42-75); PLATELET COUNT 426 x10^3/uL (130-400); RED BLOOD COUNT 4.01 x10^6/uL (3.82-5.3); RED CELL DISTRIBUTION WIDTH 14.2 % (9.6-15.2)
[2020-08-03 06:18] LABS: MD NO
[2020-08-03 06:21] LABS: ALANINE AMINOTRANSFERASE 30 U/L (12-78); ALBUMIN 2.3 g/dL (3.4-5.0); ALKALINE PHOSPHATASE 183 U/L (45-117); ANION GAP 5 mmol/L (5-15); BILIRUBIN,TOTAL 0.4 mg/dL (0.2-1.0); CALCIUM 8.8 mg/dL (8.5-10.1); CREATININE 0.67 mg/dL (0.55-1.02); TOTAL PROTEIN 6.4 g/dL (6.4-8.2)
[2020-08-03] MEDS: INSULIN LISPRO 100 UNITS/ML, PEN SQ-INSULIN SCH ×4 (07:00→20:59)
[2020-08-03] MEDS: HYDROcodone/APAP 5/325 TABLET PO PRN ×2 (07:29→11:41)
[2020-08-03 07:51] VITALS: BP 163/71
[2020-08-03] MEDS: DULOXETINE 30 MG CAPSULE.DR PO SCH (09:00)
[2020-08-03] MEDS: ALBUTEROL HFA 90 MCG/SPRAY INH SCH ×2 (09:00→20:24)
[2020-08-03] MEDS: CEFTRIAXONE PMX 1GM/50ML 50 ML IV SCH (09:10)
[2020-08-03] MEDS: ENOXAPARIN 30 MG/0.3 ML SQ SCH ×2 (09:11→20:52)
[2020-08-03] MEDS: LISINOPRIL 10 MG TABLET PO SCH (09:12)
[2020-08-03] MEDS: DOXYCYCLINE 100MG TABLET PO SCH ×2 (09:12→20:51)
[2020-08-03] MEDS: MULTIVITAMIN 1 TABLET PO SCH (09:12)
[2020-08-03] MEDS: GABAPENTIN 300 MG CAPSULE PO SCH ×3 (09:12→20:48)
[2020-08-03 14:18] VITALS: BP 130/67
[2020-08-03] MEDS: ACETAMINOPHEN 325 MG TABLET PO PRN (16:05)
[2020-08-03 19:37] VITALS: BP 174/74
[2020-08-04 03:44] VITALS: BP 180/74
[2020-08-04] MEDS: HYDROcodone/APAP 5/325 TABLET PO PRN ×4 (04:11→23:12)
[2020-08-04 05:46] LABS: BASOPHILS % (AUTO) 0 % (0-1); EOSINOPHILS % (AUTO) 9 % (1-7); LYMPHOCYTES % (AUTO) 16 % (22-44); MEAN CORPUSCULAR HEMOGLOBIN 28.1 pg (27.0-34.8); MEAN CORPUSCULAR HGB CONC 33.3 g/dL (32.4-35.8); MEAN PLATELET VOLUME 7.7 fL (7.4-10.4); MONOCYTES % (AUTO) 7 % (2-9); NEUTROPHILS % (AUTO) 68 % (42-75); PLATELET COUNT 345 x10^3/uL (130-400); RED BLOOD COUNT 3.68 x10^6/uL (3.82-5.3); RED CELL DISTRIBUTION WIDTH 14.5 % (9.6-15.2)
[2020-08-04 05:47] LABS: MD NO
[2020-08-04 05:52] LABS: ANION GAP 4 mmol/L (5-15); CALCIUM 8.1 mg/dL (8.5-10.1); CHLORIDE 99 mmol/L (98-107)
[2020-08-04 05:57] LABS: CREATININE 0.46 mg/dL (0.55-1.02)
[2020-08-04 05:58] LABS: ALANINE AMINOTRANSFERASE 27 U/L (12-78); ALKALINE PHOSPHATASE 157 U/L (45-117); BILIRUBIN,TOTAL 0.3 mg/dL (0.2-1.0); TOTAL PROTEIN 5.6 g/dL (6.4-8.2)
[2020-08-04] MEDS: LEVOTHYROXINE 75 MCG TABLET PO SCH (06:00)
[2020-08-04] MEDS: OMEPRAZOLE 20 MG CAPSULE.DR PO SCH (06:00)
[2020-08-04] MEDS: INSULIN LISPRO 100 UNITS/ML, PEN SQ-INSULIN SCH ×4 (07:00→21:21)
[2020-08-04 07:01] VITALS: BP 171/73
[2020-08-04] MEDS: DULOXETINE 30 MG CAPSULE.DR PO SCH ×2 (09:00→09:31)
[2020-08-04] MEDS: GABAPENTIN 300 MG CAPSULE PO SCH ×4 (09:00→21:03)
[2020-08-04] MEDS: CEFTRIAXONE PMX 1GM/50ML 50 ML IV SCH (09:28)
[2020-08-04] MEDS: MULTIVITAMIN 1 TABLET PO SCH (09:31)
[2020-08-04] MEDS: LISINOPRIL 10 MG TABLET PO SCH (09:31)
[2020-08-04] MEDS: ENOXAPARIN 30 MG/0.3 ML SQ SCH ×2 (09:31→21:03)
[2020-08-04] MEDS: DOXYCYCLINE 100MG TABLET PO SCH ×2 (09:31→21:02)
[2020-08-04] MEDS: ALBUTEROL HFA 90 MCG/SPRAY INH SCH ×2 (09:50→19:51)
[2020-08-04] MEDS: NYSTATIN 500,000 UNITS/5 ML UDC PO SCH ×3 (11:27→21:02)
[2020-08-04] MEDS: ONDANSETRON 2MG/ML, 2ML IVPush PRN ×2 (11:27→17:59)
[2020-08-04 12:59] VITALS: BP 138/64
[2020-08-04] MEDS: ACETAMINOPHEN 325 MG TABLET PO PRN (13:06)
[2020-08-04] MEDS ORDERED: OMNIPAQUE 350 MG/ML, 100ML BOTTLE ONE (14:45)
[2020-08-04 20:35] VITALS: BP 169/72
[2020-08-04] MEDS ORDERED: SENNA/DOCUSATE TABLET PO PRN (21:00)
[2020-08-04] MEDS ORDERED: BISACODYL 10 MG SUPP PR PRN (21:00)
[2020-08-04] MEDS: MAALOX/HYOSCYAMINE/LIDOCAINE 45 ML BTL PO PRN (23:12)
[2020-08-05 02:00] VITALS: BP 165/72
[2020-08-05 05:30] LABS: BASOPHILS % (AUTO) 1 % (0-1); EOSINOPHILS % (AUTO) 8 % (1-7); LYMPHOCYTES % (AUTO) 17 % (22-44); MEAN CORPUSCULAR HEMOGLOBIN 27.8 pg (27.0-34.8); MEAN CORPUSCULAR HGB CONC 33.1 g/dL (32.4-35.8); MEAN PLATELET VOLUME 7.6 fL (7.4-10.4); MONOCYTES % (AUTO) 7 % (2-9); NEUTROPHILS % (AUTO) 67 % (42-75); PLATELET COUNT 329 x10^3/uL (130-400); RED BLOOD COUNT 3.55 x10^6/uL (3.82-5.3); RED CELL DISTRIBUTION WIDTH 14.7 % (9.6-15.2)
[2020-08-05 05:32] LABS: MD NO
[2020-08-05 05:41] LABS: ALANINE AMINOTRANSFERASE 20 U/L (12-78); ANION GAP 3 mmol/L (5-15); CALCIUM 8.2 mg/dL (8.5-10.1); CHLORIDE 100 mmol/L (98-107); CREATININE 0.43 mg/dL (0.55-1.02)
[2020-08-05 05:46] LABS: ALKALINE PHOSPHATASE 147 U/L (45-117); BILIRUBIN,TOTAL 0.3 mg/dL (0.2-1.0); TOTAL PROTEIN 5.6 g/dL (6.4-8.2)
[2020-08-05] MEDS: INSULIN LISPRO 100 UNITS/ML, PEN SQ-INSULIN SCH ×4 (07:00→20:57)
[2020-08-05 07:11] VITALS: BP 192/77
[2020-08-05] MEDS ORDERED: FUROSEMIDE 20 MG/2 ML IV ONE (07:30)
[2020-08-05] MEDS: DOXYCYCLINE 100MG TABLET PO SCH ×2 (07:59→20:58)
[2020-08-05] MEDS: NYSTATIN 500,000 UNITS/5 ML UDC PO SCH ×4 (08:00→21:32)
[2020-08-05] MEDS: MULTIVITAMIN 1 TABLET PO SCH (08:00)
[2020-08-05] MEDS: LISINOPRIL 10 MG TABLET PO SCH (08:00)
[2020-08-05] MEDS: OMEPRAZOLE 20 MG CAPSULE.DR PO SCH (08:00)
[2020-08-05] MEDS: LEVOTHYROXINE 75 MCG TABLET PO SCH (08:00)
[2020-08-05] MEDS: POLYETHYLENE GLYCOL 17 GM PACKET PO SCH (08:01)
[2020-08-05] MEDS: HYDROcodone/APAP 5/325 TABLET PO PRN ×3 (08:04→18:41)
[2020-08-05] MEDS: CEFTRIAXONE PMX 1GM/50ML 50 ML IV SCH (08:06)
[2020-08-05] MEDS: GABAPENTIN 300 MG CAPSULE PO SCH ×4 (08:16→21:00)
[2020-08-05] MEDS: DULOXETINE 30 MG CAPSULE.DR PO SCH (08:16)
[2020-08-05] MEDS: ALBUTEROL HFA 90 MCG/SPRAY INH SCH ×3 (08:16→19:10)
[2020-08-05] MEDS: ENOXAPARIN 30 MG/0.3 ML SQ SCH ×2 (08:16→20:57)
[2020-08-05] MEDS: ONDANSETRON 2MG/ML, 2ML IVPush PRN (09:24)
[2020-08-05] MEDS: SUMATRIPTAN 50 MG TABLET PO PRN ×2 (11:34→21:32)
[2020-08-05 13:27] VITALS: BP 178/79
[2020-08-05] MEDS: MAALOX/HYOSCYAMINE/LIDOCAINE 45 ML BTL PO PRN ×2 (15:19→22:34)
[2020-08-05 19:55] VITALS: BP 153/76
[2020-08-06 01:05] VITALS: BP 165/74
[2020-08-06 05:01] LABS: BASOPHILS % (AUTO) 1 % (0-1); EOSINOPHILS % (AUTO) 6 % (1-7); LYMPHOCYTES % (AUTO) 17 % (22-44); MEAN CORPUSCULAR HEMOGLOBIN 27.9 pg (27.0-34.8); MEAN CORPUSCULAR HGB CONC 33.4 g/dL (32.4-35.8); MEAN PLATELET VOLUME 7.7 fL (7.4-10.4); MONOCYTES % (AUTO) 8 % (2-9); NEUTROPHILS % (AUTO) 68 % (42-75); PLATELET COUNT 292 x10^3/uL (130-400); RED BLOOD COUNT 3.66 x10^6/uL (3.82-5.3); RED CELL DISTRIBUTION WIDTH 14.8 % (9.6-15.2)
[2020-08-06 05:03] LABS: MD NO
[2020-08-06 05:11] LABS: ANION GAP 3 mmol/L (5-15); CALCIUM 8.6 mg/dL (8.5-10.1); CHLORIDE 98 mmol/L (98-107)
[2020-08-06] MEDS: LEVOTHYROXINE 75 MCG TABLET PO SCH (05:15)
[2020-08-06 05:16] LABS: ALANINE AMINOTRANSFERASE 21 U/L (12-78); ALKALINE PHOSPHATASE 140 U/L (45-117); BILIRUBIN,TOTAL 0.3 mg/dL (0.2-1.0); CREATININE 0.45 mg/dL (0.55-1.02); TOTAL PROTEIN 5.6 g/dL (6.4-8.2)
[2020-08-06] MEDS: NYSTATIN 500,000 UNITS/5 ML UDC PO SCH ×3 (05:16→16:00)
[2020-08-06] MEDS: HYDROcodone/APAP 5/325 TABLET PO PRN ×2 (05:16→11:17)
[2020-08-06] MEDS: OMEPRAZOLE 20 MG CAPSULE.DR PO SCH (05:16)
[2020-08-06] MEDS: ALBUTEROL HFA 90 MCG/SPRAY INH SCH (07:00)
[2020-08-06 07:44] VITALS: BP 175/75
[2020-08-06] MEDS: DOXYCYCLINE 100MG TABLET PO SCH (08:06)
[2020-08-06] MEDS: MULTIVITAMIN 1 TABLET PO SCH (08:06)
[2020-08-06] MEDS: LISINOPRIL 10 MG TABLET PO SCH (08:06)
[2020-08-06] MEDS: POLYETHYLENE GLYCOL 17 GM PACKET PO SCH (08:07)
[2020-08-06] MEDS: DULOXETINE 30 MG CAPSULE.DR PO SCH (08:10)
[2020-08-06] MEDS: INSULIN LISPRO 100 UNITS/ML, PEN SQ-INSULIN SCH ×3 (08:10→16:00)
[2020-08-06] MEDS: CEFTRIAXONE PMX 1GM/50ML 50 ML IV SCH (08:10)
[2020-08-06] MEDS: GABAPENTIN 300 MG CAPSULE PO SCH ×2 (08:11→16:00)
[2020-08-06] MEDS: ENOXAPARIN 30 MG/0.3 ML SQ SCH (08:12)
[2020-08-06] MEDS ORDERED: OXYcodone ORAL.CONC 20 MG/ML PO ONE (08:30)
[2020-08-06] MEDS ORDERED: LACTULOSE 20 GM/30 ML UDC PO SCH (09:00)
[2020-08-06] MEDS: ONDANSETRON 2MG/ML, 2ML IVPush PRN (09:09)
[2020-08-06 12:08] VITALS: BP 152/74
[2020-08-06] MEDS: DICYCLOMINE 20 MG TABLET PO SCH ×2 (13:07→16:00)
[2020-08-06] MEDS ORDERED: NYST1000 PO (14:05)
[2020-08-06] MEDS ORDERED: MORP-29 PO (14:05)
[2020-08-06] MEDS ORDERED: DOXY100T PO (14:05)
[2020-08-06] MEDS ORDERED: DICY20TA4 PO (14:05)
[2020-08-06] MEDS ORDERED: CEFD300C37 PO (14:06)
[2020-08-06] MEDS ORDERED: HYDR-1067 PO (14:29)
[2020-08-06] MEDS ORDERED: MAALOX/HYOSCYAMINE/LIDOCAINE 45 ML BTL PO SCH (16:00)
[2020-08-06] MEDS ORDERED: OMEPRAZOLE 20 MG CAPSULE.DR PO SCH (21:00)
== END 2020-08-06 18:26 | DRG 871 ==
LOC: ED 07:36 → EDIP 07:52 → SUATTDRO 07:53 → 4WST 08:36 → CCU 07-30 10:18 → 3N 08-01 18:09
PROVIDERS: ADMIT Hospitalist; ATTEND Hospitalist
DX: A41.9 Sepsis, unspecified organism (principal); J18.9 Pneumonia, unspecified organism; J96.21 Acute and chronic respiratory failure with hypoxia; E87.1 Hypo-osmolality and hyponatremia; D68.59 Other primary thrombophilia; J44.0 Chronic obstructive pulmonary disease with (acute) lower respiratory infection; R18.8 Other ascites; E03.9 Hypothyroidism, unspecified; E11.65 Type 2 diabetes mellitus with hyperglycemia; G43.909 Migraine, unspecified, not intractable, without status migrainosus; E11.42 Type 2 diabetes mellitus with diabetic polyneuropathy; I10 Essential (primary) hypertension; K21.9 Gastro-esophageal reflux disease without esophagitis; M19.90 Unspecified osteoarthritis, unspecified site; N32.81 Overactive bladder; Z20.822 Contact with and (suspected) exposure to COVID-19; F32.9 Major depressive disorder, single episode, unspecified; F41.9 Anxiety disorder, unspecified; Z88.0 Allergy status to penicillin; Z90.49 Acquired absence of other specified parts of digestive tract; Z90.710 Acquired absence of both cervix and uterus; Z99.81 Dependence on supplemental oxygen; Z88.5 Allergy status to narcotic agent; Z80.8 Family history of malignant neoplasm of other organs or systems
CPT/HCPCS: 36415; 71045; 71275; 76700; 80048; 80053; 82103; 82728; 82962; 83605; 83615; 83880; 84145; 84443; 84484; 85025; 85379; 86140; 87040; 87081; 93005; 94640; 96374; 99291; G0378; J0696; J1100; J1650; J1940; J2405; Q0162; Q9967; J0360; J1815; J7030; Q0177; U0003